=== PATIENT | female | born 1960 | race Caucasian/White ===

== ENCOUNTER 2017-09-06 19:48 | Emergency (ER) | payer MEDICAID, OTHER ==
[~2017-09-06] VITALS: Ht 167.6 cm; Wt 79.4 kg
[2017-09-06] MEDS ORDERED: SODIUM CHLORIDE 0.9% 500 ML IVB ONE (20:46)
[2017-09-06 21:06] LABS: Basophils # (auto) 0 uL; Basophils % (auto) 0.4 % (0.0-2.0); Eosinophils # (auto) 0.1 uL; Eosinophils % (auto) 0.9 % (0.0-7.0); Hematocrit 37.1 % (36.0-46.0); Hemoglobin 12.5 g/dL (12.2-16.2); Lymphocytes # (auto) 2.2 uL; Lymphocytes % (auto) 25.4 % (10.0-50.0); Mean Corpuscular Hemoglobin 29.7 pg (28.0-32.0); Mean Corpuscular Hgb Conc. 33.7 g/dL (32.0-36.0); Mean Corpuscular Volume 88.2 fL (80.0-100.0); Mean Platelet Volume 7.6 fL (6.9-10.8); Monocytes # (auto) 0.6 uL; Monocytes % (auto) 6.7 % (0.0-12.0); Neutrophils # (auto) 5.7 uL; Neutrophils % (auto) 66.6 % (37.0-80.0); Nucleated Red Blood Cells % 0.1 %; Platelet Count (auto) 343 10^3/uL (140-450); Red Cell Distribution Width 14.2 % (11.8-14.3); White Blood Cell 8.5 10^3/uL (4.4-10.8)
[2017-09-06 21:23] LABS: Albumin 3.7 g/dL (3.4-5.0); Anion Gap 9 (5-15); Aspartate Aminotransferase 14 U/L (15-37); BUN/Creatinine Ratio 28.9; Blood Urea Nitrogen 22 mg/dL (7-18); Carbon Dioxide 25 mmol/L (21-32); Chloride 103 mmol/L (98-107); GFR African American 101 mL/min; GFR Non-African American 84 mL/min; Glucose 123 mg/dL (74-106); Magnesium 1.6 mg/dL (1.6-2.6); Potassium 3.4 mmol/L (3.5-5.1); Sodium 137 mmol/L (136-145)
[2017-09-06 21:26] LABS: Alkaline Phosphatase 45 U/L (45-117); Bilirubin, Total 0.3 mg/dL (0.2-1.0); Total Protein 7.4 g/dL (6.4-8.2)
[2017-09-07 00:31] LABS: Acetaminophen < 2.0 ug/mL (10-30); Salicylate 2.9 mg/dL (2.8-20.0)
[2017-09-09] MEDS: metFORMIN HYDROCHLORIDE 500 MG TAB PO SCH (18:42)
[2017-09-09] MEDS ORDERED: OXcarbazepine 300 MG TAB PO SCH (22:00)
[2017-09-10] MEDS: LEVOTHYROXINE SODIUM 100 MCG TAB PO SCH (08:47)
[2017-09-10] MEDS: metFORMIN HYDROCHLORIDE 500 MG TAB PO SCH ×2 (08:47→18:28)
[2017-09-10] MEDS: ATORVASTATIN 20 MG TAB PO SCH (08:47)
[2017-09-10] MEDS: LISINOPRIL 10 MG TAB PO SCH (11:13)
[2017-09-10] MEDS: OXcarbazepine 300 MG TAB PO SCH ×2 (11:14→22:27)
[2017-09-10] MEDS ORDERED: OLANZapine 5 MG TAB PO PRN (18:45)
[2017-09-10] MEDS: VRAYLAR 3 MG PO SCH (21:46)
[2017-09-11] MEDS: LEVOTHYROXINE SODIUM 100 MCG TAB PO SCH (09:14)
[2017-09-11] MEDS: ATORVASTATIN 20 MG TAB PO SCH (09:14)
[2017-09-11] MEDS: metFORMIN HYDROCHLORIDE 500 MG TAB PO SCH ×2 (09:14→22:11)
[2017-09-11] MEDS ORDERED: VRAYLAR 1.5 MG PO SCH (18:00)
[2017-09-11] MEDS ORDERED: diphenhdrAMINE HCL 25 MG CAP PO ONE (20:45)
[2017-09-11] MEDS: VRAYLAR 3 MG PO SCH (22:00)
[2017-09-11] MEDS: OXcarbazepine 300 MG TAB PO SCH ×2 (22:00→22:11)
[2017-09-11] MEDS: LISINOPRIL 10 MG TAB PO SCH (22:12)
[2017-09-12] MEDS: LEVOTHYROXINE SODIUM 100 MCG TAB PO SCH (09:18)
[2017-09-12] MEDS: ATORVASTATIN 20 MG TAB PO SCH (09:18)
[2017-09-12] MEDS: metFORMIN HYDROCHLORIDE 500 MG TAB PO SCH ×2 (09:18→23:35)
[2017-09-12] MEDS: OXcarbazepine 300 MG TAB PO SCH ×2 (10:00→23:35)
[2017-09-12] MEDS: LISINOPRIL 10 MG TAB PO SCH (10:00)
[2017-09-12] MEDS: IBUPROFEN 800 MG TAB PO PRN (10:46)
[2017-09-12] MEDS: VRAYLAR 3 MG PO SCH (23:35)
[2017-09-13] MEDS: ATORVASTATIN 20 MG TAB PO SCH (07:55)
[2017-09-13] MEDS: LEVOTHYROXINE SODIUM 100 MCG TAB PO SCH (07:55)
[2017-09-13] MEDS: metFORMIN HYDROCHLORIDE 500 MG TAB PO SCH ×2 (07:59→22:10)
[2017-09-13] MEDS: OXcarbazepine 300 MG TAB PO SCH ×2 (10:00→22:21)
[2017-09-13] MEDS: LISINOPRIL 10 MG TAB PO SCH (22:10)
[2017-09-13] MEDS: VRAYLAR 3 MG PO SCH (22:21)
[2017-09-14] MEDS: metFORMIN HYDROCHLORIDE 500 MG TAB PO SCH ×2 (08:30→22:48)
[2017-09-14] MEDS: LEVOTHYROXINE SODIUM 100 MCG TAB PO SCH (08:40)
[2017-09-14] MEDS: ATORVASTATIN 20 MG TAB PO SCH (08:40)
[2017-09-14] MEDS: LISINOPRIL 10 MG TAB PO SCH (10:00)
[2017-09-14] MEDS: IBUPROFEN 800 MG TAB PO PRN (10:46)
[2017-09-14] MEDS: OXcarbazepine 300 MG TAB PO SCH ×3 (10:46→22:48)
[2017-09-14] MEDS: VRAYLAR 3 MG PO SCH ×2 (22:20→22:48)
[2017-09-15] MEDS: ATORVASTATIN 20 MG TAB PO SCH (07:40)
[2017-09-15] MEDS: LEVOTHYROXINE SODIUM 100 MCG TAB PO SCH (07:41)
[2017-09-15] MEDS: metFORMIN HYDROCHLORIDE 500 MG TAB PO SCH ×2 (07:41→18:55)
[2017-09-15] MEDS: OXcarbazepine 300 MG TAB PO SCH ×2 (11:40→22:20)
[2017-09-15] MEDS: LISINOPRIL 10 MG TAB PO SCH (11:40)
[2017-09-15] MEDS: VRAYLAR 3 MG PO SCH (22:20)
[2017-09-16] MEDS: metFORMIN HYDROCHLORIDE 500 MG TAB PO SCH (08:49)
[2017-09-16] MEDS: ATORVASTATIN 20 MG TAB PO SCH (08:49)
[2017-09-16] MEDS: LEVOTHYROXINE SODIUM 100 MCG TAB PO SCH (08:49)
[2017-09-16 10:00] VITALS: BP 104/60
[2017-09-16] MEDS: LISINOPRIL 10 MG TAB PO SCH (10:00)
[2017-09-16] MEDS: OXcarbazepine 300 MG TAB PO SCH (10:14)
== END 2017-09-16 10:35 | disposition left against medical advice (07) ==
LOC: ER 19:48 → EDBD 19:48 → ER 09-16 10:35
DX: T65.91XA Toxic effect of unspecified substance, accidental (unintentional), initial encounter (principal); E11.9 Type 2 diabetes mellitus without complications; Y92.89 Other specified places as the place of occurrence of the external cause; Z53.29 Procedure and treatment not carried out because of patient's decision for other reasons; Z86.73 Personal history of transient ischemic attack (TIA), and cerebral infarction without residual deficits
CPT/HCPCS: 36415; 51702; 80053; 80307; 80320; 80329; 82962; 83735; 85025; 93005; 94761; 96360; 96361; 99285; J7030

== ENCOUNTER 2021-08-08 16:20 | Emergency (ER) | payer OTHER ==
[~2021-08-08] VITALS: Ht 170.2 cm; Wt 68.0 kg
[2021-08-08 16:24] VITALS: BP 153/94
== END 2021-08-08 21:57 | disposition home or self-care (01) ==
LOC: ER 16:20
DX: R07.89 Other chest pain (principal); J44.9 Chronic obstructive pulmonary disease, unspecified; E11.9 Type 2 diabetes mellitus without complications; I10 Essential (primary) hypertension; Z86.73 Personal history of transient ischemic attack (TIA), and cerebral infarction without residual deficits
CPT/HCPCS: 71045; 93005

== ENCOUNTER 2022-06-18 16:00 | Emergency (ER) | payer OTHER ==
[~2022-06-18] VITALS: Ht 172.7 cm; Wt 68.0 kg
[2022-06-18 16:17] VITALS: BP 108/62
[2022-06-18] MEDS ORDERED: ONDANSETRON ODT 4 MG TAB PO ONE (16:30)
[2022-06-18] MEDS ORDERED: SODIUM CHLORIDE 0.9% 1,000 ML IV ONE (16:30)
[2022-06-18 16:58] LABS: Basophils # (auto) 0 10 ^3/uL (0-0.2); Basophils % (auto) 0.4 % (0.0-2.0); Eosinophils # (auto) 0 10 ^3/uL (0-0.8); Eosinophils % (auto) 0.4 % (0.0-7.0); Hemoglobin 12.8 g/dL (12.2-16.2); Lymphocytes # (auto) 1.4 10 ^3/uL (0.4-5.4); Mean Corpuscular Hemoglobin 26.7 pg (28.0-32.0); Mean Corpuscular Hgb Conc. 31.7 g/dL (32.0-36.0); Monocytes # (auto) 0.6 10 ^3/uL (0-1.3); Neutrophils # (auto) 7.3 10 ^3/uL (1.6-8.6)
[2022-06-18 17:00] LABS: Hematocrit 40.4 % (36.0-46.0); Lymphocytes % (auto) 14.5 % (10.0-50.0); Mean Corpuscular Volume 84.3 fL (80.0-100.0); Monocytes % (auto) 6.9 % (0.0-12.0); Neutrophils % (auto) 77.8 % (37.0-80.0); Red Blood Cells 4.79 10^6/uL (4.0-5.20); Red Cell Distribution Width 14.5 % (11.8-14.3); White Blood Cell 9.3 10^3/uL (4.4-10.8)
[2022-06-18 17:18] LABS: Albumin 3.7 g/dL (3.4-5.0); BUN/Creatinine Ratio 32.5; Calcium 9.2 mg/dL (8.5-10.1); Potassium 4.5 mmol/L (3.5-5.1)
[2022-06-18 17:26] LABS: Bilirubin, Total 0.3 mg/dL (0.2-1.0); Total Protein 7.2 g/dL (6.4-8.2)
== END 2022-06-18 22:45 | disposition left against medical advice (07) ==
LOC: ER 16:00
DX: R11.2 Nausea with vomiting, unspecified (principal); J44.9 Chronic obstructive pulmonary disease, unspecified; E11.9 Type 2 diabetes mellitus without complications; I10 Essential (primary) hypertension; Z86.73 Personal history of transient ischemic attack (TIA), and cerebral infarction without residual deficits; Z88.0 Allergy status to penicillin
CPT/HCPCS: 36415; 80053; 84484; 85025; 93005; 99284; Q0162

== ENCOUNTER 2022-07-27 07:56 | Inpatient (IN) | payer OTHER ==
[~2022-07-27] VITALS: Ht 170.2 cm; Wt 82.5 kg
[~2022-07-27 07:56] MED LIST: ATOR20TA PO; DAPA1TAB4 PO; GLIM4TAB42 PO; LEVO200T PO; LISI2.5T47 PO; METF-371 PO; SEMA3TAB PO; SITA100T7 PO
[2022-07-27] MEDS ORDERED: PREGABALIN CAPSULE 75 MG CAP ONE (10:26)
[2022-07-27] MEDS ORDERED: VANCOMYCIN HCL 1000 MG VL ONE ×2 (10:26→14:55)
[2022-07-27] MEDS ORDERED: CELECOXIB 100 MG CAP ONE (10:26)
[2022-07-27] MEDS ORDERED: ACETAMINOPHEN IV 100 ML IV ONE (10:27)
[2022-07-27] MEDS ORDERED: VANCOMYCIN 1GM/250ML 250 ML IV ONE (11:00)
[2022-07-27] MEDS ORDERED: BUPIVACAINE W/ EPINEPH 0.25% INJ 50ML MDV ONE (11:11)
[2022-07-27] MEDS ORDERED: TRANEXAMIC ACID 20 ML ONE (11:11)
[2022-07-27] MEDS ORDERED: KETOROLAC TROMETH 30 MG/ML 1ML VIAL ONE (11:13)
[2022-07-27] MEDS ORDERED: TETRACAINE 1% INJ 2 ML VIAL IJ ONE (11:38)
[2022-07-27] MEDS ORDERED: MORPHINE SULF PF 5 MG/10 ML VIAL ONE ×2 (11:40→12:00)
[2022-07-27] MEDS ORDERED: MIDAZOLAM HCL 2MG/2ML 2ml VIAL (1mg/ml) ONE (11:58)
[2022-07-27] MEDS ORDERED: fentaNYL CITRATE 100 MCG/2 ML VL ONE (11:58)
[2022-07-27 12:22] LABS: Basophils # (auto) 0 10 ^3/uL (0-0.2); Basophils % (auto) 0.5 % (0.0-2.0); Eosinophils # (auto) 0.1 10 ^3/uL (0-0.8); Hemoglobin 11.7 g/dL (12.2-16.2); Monocytes # (auto) 0.6 10 ^3/uL (0-1.3); Neutrophils # (auto) 5.3 10 ^3/uL (1.6-8.6); Red Cell Distribution Width 15.4 % (11.8-14.3)
[2022-07-27 12:25] LABS: Eosinophils % (auto) 0.9 % (0.0-7.0); Hematocrit 35.8 % (36.0-46.0); Lymphocytes # (auto) 1.9 10 ^3/uL (0.4-5.4); Lymphocytes % (auto) 23.9 % (10.0-50.0); Mean Corpuscular Hemoglobin 27.3 pg (28.0-32.0); Mean Corpuscular Hgb Conc. 32.7 g/dL (32.0-36.0); Mean Corpuscular Volume 83.6 fL (80.0-100.0); Monocytes % (auto) 7.8 % (0.0-12.0); Neutrophils % (auto) 66.9 % (37.0-80.0); Nucleated Red Blood Cells % 0.1 %; Red Blood Cells 4.28 10^6/uL (4.0-5.20)
[2022-07-27 12:37] LABS: INR 1.03 (0.9-1.15)
[2022-07-27] MEDS ORDERED: HYDROmorphone HCL 2 MG/ML VL/or syr IV PRN ×2 (13:15→14:45)
[2022-07-27] MEDS ORDERED: ePHEDrine SULFATE 50 MG/ML AMP IV PRN (13:15)
[2022-07-27] MEDS ORDERED: MIDAZOLAM HCL 2MG/2ML 2ml VIAL (1mg/ml) IV PRN (13:15)
[2022-07-27] MEDS ORDERED: NALBUPHINE HCL 10 MG/1ml INJECTION SUBCUT ONE (13:15)
[2022-07-27] MEDS ORDERED: ONDANSETRON HCL 4 MG/2 ML VIAL IV PRN (13:15)
[2022-07-27] MEDS ORDERED: NALOXONE HCL 0.4 MG/ML VIAL IV PRN (13:15)
[2022-07-27] MEDS ORDERED: DexAMETHasone SOD PHOS 10MG/1ML VIAL INJ IV PRN (13:15)
[2022-07-27] MEDS ORDERED: KETOROLAC TROMETH 30 MG/ML 1ML VIAL IV PRN (13:15)
[2022-07-27] MEDS ORDERED: LABETALOL HCL 5 MG/ML 4ML SYRINGE IV PRN (13:15)
[2022-07-27] MEDS ORDERED: diphenhdrAMINE HCL 50 MG/1 ML VL IV PRN (13:15)
[2022-07-27] MEDS ORDERED: DexAMETHasone SOD PHOS 10MG/1ML VIAL INJ ONE (13:37)
[2022-07-27] MEDS ORDERED: ceFAZolin 1GM/50ML 50 ML IV SCH (14:45)
[2022-07-27] MEDS ORDERED: MORPHINE SULFATE INJ 2 MG/ml SYRG IV PRN (14:45)
[2022-07-27] MEDS ORDERED: BISACODYL 5 MG EC TAB PO PRN (14:45)
[2022-07-27] MEDS ORDERED: ACETAMINOPHEN 325 MG TAB PO PRN (14:45)
[2022-07-27] MEDS ORDERED: NITROGLYCERIN 0.4 MG SL TAB SL PRN (14:45)
[2022-07-27] MEDS ORDERED: DEXTROSE (50%) 50ML SYRG IV PRN (14:45)
[2022-07-27] MEDS ORDERED: PHENYLEPHRINE HCL 10 MG/ML VL IV ONE (16:11)
[2022-07-27] MEDS: InsuLIN REG 1unit/0.01ml Soln (100units/ml) SC SCH ×2 (17:00→22:35)
[2022-07-27] MEDS: ACCU-CHEK COMFORT CURVE STRIP VI SCH ×2 (17:00→22:00)
[2022-07-27 19:00] VITALS: BP 103/63
[2022-07-27] MEDS: ONDANSETRON HCL 4 MG/2 ML VIAL IV PRN (19:42)
[2022-07-27 20:00] VITALS: BP 94/57
[2022-07-27 21:00] VITALS: BP 94/59
[2022-07-27 22:00] VITALS: BP 94/59
[2022-07-27 22:01] VITALS: BP 95/56
[2022-07-27] MEDS: DOCUSATE SOD 100 MG CAP PO SCH (22:26)
[2022-07-27] MEDS: SODIUM CHLOR 0.9% PF (SALINE LOCK) 10ML VIAL/SYR IV SCH (22:35)
[2022-07-27] MEDS: LACTATED RINGER'S 1,000 ML IV SCH (22:41)
[2022-07-27 23:00] VITALS: BP 99/55
[2022-07-28] VITALS (21 sets, daily range): BP systolic 89–125; BP diastolic 52–74
[2022-07-28] MEDS: LACTATED RINGER'S 1,000 ML IV SCH ×3 (05:21→20:45)
[2022-07-28] MEDS: LEVOTHYROXINE SODIUM 100 MCG TAB PO SCH (06:01)
[2022-07-28] MEDS: ACCU-CHEK COMFORT CURVE STRIP VI SCH ×4 (06:01→21:32)
[2022-07-28] MEDS: InsuLIN REG 1unit/0.01ml Soln (100units/ml) SC SCH ×4 (06:02→21:32)
[2022-07-28] MEDS: SODIUM CHLOR 0.9% PF (SALINE LOCK) 10ML VIAL/SYR IV SCH ×3 (06:02→21:31)
[2022-07-28 06:04] LABS: Hematocrit 30.2 % (36.0-46.0)
[2022-07-28 06:20] LABS: Albumin 2.7 g/dL (3.4-5.0); BUN/Creatinine Ratio 32.8; Calcium 8.1 mg/dL (8.5-10.1); Potassium 4.6 mmol/L (3.5-5.1)
[2022-07-28 06:22] LABS: Bilirubin, Total 0.5 mg/dL (0.2-1.0); Total Protein 5.5 g/dL (6.4-8.2)
[2022-07-28] MEDS ORDERED: LISINOPRIL 5 MG TAB PO SCH (10:00)
[2022-07-28] MEDS: ENOXAPARIN SOD 40 MG/0.4 ML SYRINGE SC SCH (10:10)
[2022-07-28] MEDS: DOCUSATE SOD 100 MG CAP PO SCH ×2 (10:10→21:31)
[2022-07-28] MEDS: ATORVASTATIN 20 MG TAB PO SCH (10:10)
[2022-07-28] MEDS: HYDROmorphone HCL 2 MG/ML VL/or syr IV PRN (10:18)
[2022-07-28 14:18] LABS: Urine Bacteria FEW /hpf (None Seen); Urine Blood Negative /uL (Negative); Urine Hyaline Cast FEW /lpf (0 - 2); Urine Specific Gravity 1.006 (1.001-1.035); Urine WBC 23 /hpf (0 - 5)
[2022-07-28] MEDS: OXYCODONE W/ ACETAMINOPHEN 5/325MG TABLET PO PRN ×2 (15:26→20:03)
[2022-07-28] MEDS: ONDANSETRON HCL 4 MG/2 ML VIAL IV PRN (16:45)
[2022-07-29] MEDS: OXYCODONE W/ ACETAMINOPHEN 5/325MG TABLET PO PRN (04:24)
[2022-07-29 05:00] VITALS: BP 101/51
[2022-07-29 05:30] LABS: Basophils # (auto) 0 10 ^3/uL (0-0.2); Basophils % (auto) 0.1 % (0.0-2.0); Eosinophils # (auto) 0 10 ^3/uL (0-0.8); Eosinophils % (auto) 0.1 % (0.0-7.0); Hematocrit 31.1 % (36.0-46.0); Hemoglobin 10.3 g/dL (12.2-16.2); Lymphocytes # (auto) 0.9 10 ^3/uL (0.4-5.4); Mean Corpuscular Hemoglobin 27.8 pg (28.0-32.0); Mean Corpuscular Volume 84.4 fL (80.0-100.0); Monocytes # (auto) 0.8 10 ^3/uL (0-1.3); Monocytes % (auto) 8.2 % (0.0-12.0); Neutrophils # (auto) 8.2 10 ^3/uL (1.6-8.6); Neutrophils % (auto) 82.6 % (37.0-80.0); Nucleated Red Blood Cells % 0.1 %; Red Blood Cells 3.68 10^6/uL (4.0-5.20); Red Cell Distribution Width 15.2 % (11.8-14.3); White Blood Cell 9.9 10^3/uL (4.4-10.8)
[2022-07-29 05:48] LABS: BUN/Creatinine Ratio 21.3; Calcium 7.9 mg/dL (8.5-10.1); Potassium 4.4 mmol/L (3.5-5.1)
[2022-07-29] MEDS: SODIUM CHLOR 0.9% PF (SALINE LOCK) 10ML VIAL/SYR IV SCH ×2 (06:01→14:04)
[2022-07-29] MEDS: LACTATED RINGER'S 1,000 ML IV SCH (06:01)
[2022-07-29] MEDS: ACCU-CHEK COMFORT CURVE STRIP VI SCH ×3 (06:01→17:21)
[2022-07-29] MEDS: LEVOTHYROXINE SODIUM 100 MCG TAB PO SCH (06:01)
[2022-07-29] MEDS: InsuLIN REG 1unit/0.01ml Soln (100units/ml) SC SCH ×3 (06:06→17:22)
[2022-07-29 09:00] VITALS: BP 118/65
[2022-07-29] MEDS ORDERED: cefTRIAXone 1GM/50ML D5W 50 ML IV ONE (10:00)
[2022-07-29] MEDS: ENOXAPARIN SOD 40 MG/0.4 ML SYRINGE SC SCH (10:01)
[2022-07-29] MEDS: DOCUSATE SOD 100 MG CAP PO SCH (10:01)
[2022-07-29] MEDS: ATORVASTATIN 20 MG TAB PO SCH (10:01)
[2022-07-29] MEDS: ONDANSETRON HCL 4 MG/2 ML VIAL IV PRN (10:02)
[2022-07-29] MEDS: HYDROmorphone HCL 2 MG/ML VL/or syr IV PRN (10:05)
[2022-07-29] MEDS ORDERED: LACTATED RINGER'S 1,000 ML IV SCH (10:15)
[2022-07-29 13:00] VITALS: BP 135/60
[2022-07-29 17:06] VITALS: BP 135/60
[2022-07-30] MEDS ORDERED: cefTRIAXone 1GM/50ML D5W 50 ML IV SCH (09:00)
== END 2022-07-29 19:00 | disposition home health service (06) | DRG 470 ==
LOC: SUR 07:56 → OVERFLOW 14:39 → CENTRAL 18:16
PROVIDERS: ADMIT Orthopaedic Surgery Adult Reconstructive Orthopaedic Surgery; ATTEND Internal Medicine
PROC: 8E0YXBZ Computer Assisted Procedure of Lower Extremity (ICD-10-PCS; 2022-07-27)
PROC: 0SRB0JZ Replacement of Left Hip Joint with Synthetic Substitute, Open Approach (ICD-10-PCS; principal; 2022-07-27 12:48)
DX: M16.12 Unilateral primary osteoarthritis, left hip (principal); N39.0 Urinary tract infection, site not specified; E03.9 Hypothyroidism, unspecified; E11.9 Type 2 diabetes mellitus without complications; E78.5 Hyperlipidemia, unspecified; F31.9 Bipolar disorder, unspecified; I10 Essential (primary) hypertension; Z20.822 Contact with and (suspected) exposure to COVID-19; Z88.0 Allergy status to penicillin
CPT/HCPCS: 36415; 72170; 80048; 80053; 81001; 82962; 83036; 84443; 85014; 85018; 85025; 85610; 86850; 86900; 86901; 87086; 97110; 97116; 97163; 97530; C1776; G0378; J0131; J0696; J1100; J1815; J1885; J2250; J2405; J7060

== ENCOUNTER 2023-08-18 15:31 | Inpatient (IN) | payer OTHER ==
[~2023-08-18] VITALS: Ht 170.2 cm; Wt 70.5 kg
[~2023-08-18 15:31] MED LIST changes: -SEMA3TAB PO; +SEMA3TAB2 PO
[2023-08-18] MEDS ORDERED: SODIUM CHLORIDE 0.9% 2,000 ML IV ONE (16:15)
[2023-08-18 16:43] LABS: Basophils # (auto) 0.1 10 ^3/uL (0-0.2); Basophils % (auto) 0.3 % (0.0-2.0); Eosinophils # (auto) 0 10 ^3/uL (0-0.8); Eosinophils % (auto) 0.1 % (0.0-7.0); Hematocrit 39.1 % (36.0-46.0); Hemoglobin 12.4 g/dL (12.2-16.2); Lymphocytes # (auto) 1.1 10 ^3/uL (0.4-5.4); Lymphocytes % (auto) 5.7 % (10.0-50.0); Mean Corpuscular Hemoglobin 24.6 pg (28.0-32.0); Mean Corpuscular Hgb Conc. 31.7 g/dL (32.0-36.0); Mean Corpuscular Volume 77.6 fL (80.0-100.0); Monocytes # (auto) 0.5 10 ^3/uL (0-1.3); Monocytes % (auto) 2.7 % (0.0-12.0); Neutrophils # (auto) 17.5 10 ^3/uL (1.6-8.6); Neutrophils % (auto) 91.2 % (37.0-80.0); Red Blood Cells 5.04 10^6/uL (4.0-5.20); Red Cell Distribution Width 16.7 % (11.8-14.3); White Blood Cell 19.2 10^3/uL (4.4-10.8)
[2023-08-18 16:57] LABS: Alanine Aminotransferase 18 U/L (7-40); Albumin 4.6 g/dL (3.2-4.8); Alkaline Phosphatase 74 U/L (46-116); Anion Gap 15 (5-15); Aspartate Aminotransferase 17 U/L (13-40); BUN/Creatinine Ratio 21.6 (10.0-20.0); Bilirubin, Total 0.3 mg/dL (0.2-1.0); Blood Urea Nitrogen 22 mg/dL (9-23); Calcium 9.4 mg/dL (8.5-10.1); Carbon Dioxide 22 mmol/L (20-30); Chloride 99 mmol/L (98-107); Glucose 229 mg/dL (74-106); Potassium 3.4 mmol/L (3.5-5.1); Sodium 136 mmol/L (136-145); Total Protein 7.6 g/dL (5.7-8.2)
[2023-08-18 17:01] LABS: Magnesium 1.8 mg/dL (1.6-2.6)
[2023-08-18 19:40] VITALS: PULSE 74; RESP 16; O2SAT 96
[2023-08-18] MEDS ORDERED: POTASSIUM EFFERVESENT TAB 25 MEQ PO ONE (21:15)
[2023-08-18] MEDS ORDERED: cefTRIAXone 1GM/50ML D5W 50 ML IV ONE (22:00)
[2023-08-18] MEDS ORDERED: SODIUM CHLORIDE 0.9% 1,000 ML IV ONE (22:30)
[2023-08-18 22:49] LABS: Urine Bacteria NONE SEEN /hpf (None Seen); Urine Blood Negative /uL (Negative); Urine Clarity HAZY (Clear); Urine Color Yellow (Yellow); Urine Protein, UAD Negative (Negative); Urine Urobilinogen Normal (Negative); Urine WBC 3 /hpf (0 - 5); Urine pH 5.5 (5.0-8.0)
[2023-08-18] MEDS ORDERED: NITROGLYCERIN 0.4 MG SL TAB SL PRN (23:30)
[2023-08-18] MEDS ORDERED: DEXTROSE (50%) 50ML SYRG IV PRN (23:30)
[2023-08-18] MEDS ORDERED: MORPHINE SULFATE INJ 2 MG/ml SYRG IV PRN (23:30)
[2023-08-18] MEDS ORDERED: HYDROcodone-ACET 5/325MG TAB PO PRN (23:30)
[2023-08-18] MEDS ORDERED: ONDANSETRON HCL 4 MG/2 ML VIAL IV PRN (23:30)
[2023-08-18] MEDS ORDERED: ACETAMINOPHEN 325 MG TAB PO PRN (23:30)
[2023-08-19] MEDS: ACCU-CHEK COMFORT CURVE STRIP VI SCH ×2 (00:10→06:00)
[2023-08-19] MEDS ORDERED: PANTOPRAZOLE 40 MG TAB PO ONE (00:45)
[2023-08-19 04:46] LABS: Basophils # (auto) 0 10 ^3/uL (0-0.2); Basophils % (auto) 0.2 % (0.0-2.0); Eosinophils # (auto) 0 10 ^3/uL (0-0.8); Eosinophils % (auto) 0.5 % (0.0-7.0); Hematocrit 33.4 % (36.0-46.0); Hemoglobin 10.8 g/dL (12.2-16.2); Lymphocytes # (auto) 2.1 10 ^3/uL (0.4-5.4); Lymphocytes % (auto) 23.5 % (10.0-50.0); Mean Corpuscular Hgb Conc. 32.3 g/dL (32.0-36.0); Mean Corpuscular Volume 77.5 fL (80.0-100.0); Monocytes # (auto) 0.5 10 ^3/uL (0-1.3); Neutrophils # (auto) 6.3 10 ^3/uL (1.6-8.6); Neutrophils % (auto) 69.8 % (37.0-80.0); Red Blood Cells 4.32 10^6/uL (4.0-5.20); Red Cell Distribution Width 16.7 % (11.8-14.3)
[2023-08-19 04:54] LABS: Alanine Aminotransferase 14 U/L (7-40); Alkaline Phosphatase 60 U/L (46-116); Anion Gap 9 (5-15); Aspartate Aminotransferase 12 U/L (13-40); Blood Urea Nitrogen 19 mg/dL (9-23); Calcium 8.3 mg/dL (8.5-10.1); Carbon Dioxide 22 mmol/L (20-30); Chloride 107 mmol/L (98-107); Glucose 78 mg/dL (74-106); Potassium 3.6 mmol/L (3.5-5.1); Sodium 138 mmol/L (136-145)
[2023-08-19 04:55] LABS: Bilirubin, Total 0.3 mg/dL (0.2-1.0); Total Protein 6.4 g/dL (5.7-8.2)
[2023-08-19] MEDS: InsuLIN REG 1unit/0.01ml Soln (100units/ml) SC SCH ×2 (06:00)
[2023-08-19] MEDS ORDERED: LEVOTHYROXINE SODIUM 50 MCG TAB PO SCH (07:00)
[2023-08-19] MEDS ORDERED: LOSARTAN POTASSIUM 50 MG TAB PO SCH (10:00)
[2023-08-19] MEDS ORDERED: METO-281 PO (11:20)
[2023-08-19 12:24] VITALS: BP 122/70; PULSE 78; RESP 13; O2SAT 96
[2023-08-19] MEDS ORDERED: cefTRIAXone 1GM/50ML D5W 50 ML IV SCH (21:00)
[2023-08-20 08:06] LABS: Free Thyroxine Index 2.1 (1.2-4.9); Thyroxine (T4) 7.4 ug/dL (4.5-12.0)
== END 2023-08-19 13:30 | disposition home or self-care (01) | DRG 639 ==
LOC: EDUNIT# 15:31 → EDBD 15:31 → ER 15:31 → OVERFLOW 23:22 → UNDODEPER 08-19 13:11 → OVERFLOW 08-19 13:30
PROVIDERS: ADMIT Internal Medicine Pulmonary Disease; ATTEND Student in an Organized Health Care Education/Training Program
DX: E11.65 Type 2 diabetes mellitus with hyperglycemia (principal); E86.1 Hypovolemia; E87.6 Hypokalemia; D72.828 Other elevated white blood cell count; I10 Essential (primary) hypertension; J44.9 Chronic obstructive pulmonary disease, unspecified; E03.9 Hypothyroidism, unspecified; E11.43 Type 2 diabetes mellitus with diabetic autonomic (poly)neuropathy; K31.84 Gastroparesis; E86.0 Dehydration; F31.9 Bipolar disorder, unspecified; Z86.73 Personal history of transient ischemic attack (TIA), and cerebral infarction without residual deficits; Z88.0 Allergy status to penicillin; Z83.3 Family history of diabetes mellitus; Z79.4 Long term (current) use of insulin
CPT/HCPCS: 36415; 71046; 74176; 80053; 81001; 82962; 83605; 83690; 83735; 84443; 85025; 87040; 93005; G0378; J0696

== ENCOUNTER 2024-10-24 19:28 | Emergency (ER) | payer SELFPAY ==
[~2024-10-24] VITALS: Ht 170.2 cm; Wt 68.2 kg
[~2024-10-24 19:28] MED LIST changes: +METO-281 PO
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
--- NOTE | 2024-10-24 20:39 | DVH ---
Exam: CT HEAD WITHOUT CONTRAST History: [facility] Technique: [address] images through the posterior fossa and the supratentorial compart ment were acquired without contrast and imaged using soft tissue and bone algorithms. RADIATION DOSE: DLP 1450.61 mGy.cm; CTDI vol 53.87 mGy. Comparison: None Findings: There is no evidence of an intracranial hemorrhage, acute large vessel infarct, mass effect, or midli ne shift. Hypodense regions in the bilateral frontal and left occipital lobes. Moderate calcification of the carotid siphons. The calvarium, orbits, paranasal sinuses, sella, middle ears, and mastoids are unremarkable. The superficial soft tissues are within normal limits. Impression: 1. No acute intracranial abnormality. 2. Hypodense regions in the bilateral frontal and left occipital lobes favored chronic infarcts. Lenny mmend MRI if there is concern for an acute infarct.
--- NOTE | 2024-10-24 20:46 | DVH ---
EXAM: CT CERVICAL WITHOUT CONTRAST [facility] EXAM DATE: 10/24/2024 08:12 PM COMPARISON: None TECHNIQUE: Multiple axial CT images of the cervical spine were obtained using bone algorithm. Axial a nd coronal reformatting was done. Bone and soft tissue windows were reviewed. Radiation Dose Information: CT Dose: CTDI volume is 53.87 mGy. Dose-length product is 1450.61 mGy*cm Findings: There is no evidence of an acute fracture or spondylolisthesis. The vertebral body heights are well-m aintained. The craniocervical junction and dens are intact. No evidence of degenerative disc disease. No neuroforaminal narrowing. No spinal canal stenosis. There is flattening of the cervical lordosis. Bilateral hypodense thyroid nodules. The lung apices demonstrate no acute abnormality. The paraspinal and neck soft tissues appear within normal limits. C2-3: Normal C3-4: Normal C4-5: Normal C5-6: Normal C6-7: Normal C7-T1: Normal Impression: 1. No evidence of an acute fracture. 2. Straightening of the cervical lordosis which may be positional versus muscle spasm. 3. Bilateral thyroid nodules. Recommend a nonemergent, outpatient thyroid ultrasound for further eval uation if not already performed.
[2024-10-24 21:28] VITALS: BP 125/80; TEMP 98.1
[2024-10-24 23:37] VITALS: PULSE 89; RESP 16; O2SAT 95
== END 2024-10-24 23:38 | disposition home or self-care (01) ==
LOC: EDBD 19:28 → ER 19:28
DX: S60.112A Contusion of left thumb with damage to nail, initial encounter (principal); R51.9 Headache, unspecified; M25.552 Pain in left hip; R07.81 Pleurodynia; I10 Essential (primary) hypertension; E11.9 Type 2 diabetes mellitus without complications; E03.9 Hypothyroidism, unspecified; F31.9 Bipolar disorder, unspecified; J44.9 Chronic obstructive pulmonary disease, unspecified; Z79.84 Long term (current) use of oral hypoglycemic drugs; Z79.899 Other long term (current) drug therapy; Z86.73 Personal history of transient ischemic attack (TIA), and cerebral infarction without residual deficits; Z88.0 Allergy status to penicillin; Z96.642 Presence of left artificial hip joint; V59.88XA Occupant (driver) (passenger) of pick-up truck or van injured in other specified transport accidents, initial encounter; Y93.I9 Activity, other involving external motion; Y92.488 Other paved roadways as the place of occurrence of the external cause; Y99.8 Other external cause status
CPT/HCPCS: 70450; 71046; 72125; 73110; 73120; 73502